=== PATIENT | female | born 1945 | race Caucasian/White ===

== ENCOUNTER → 2018-03-23 | Outpatient (CLI) | payer OTHER ==
[~2018-03-23] MED LIST: ADULT LOW DOSE81 MG PO; ANTACID500 MG OR; CALCIUM PO; COUMADIN; FISH OIL 1,0001 EAC5 PO; NEOMYCIN/BACIT3.5 G1 TOP; RYTHMOL 150MG150 M1 PO; VITAMIN D1000 UNI1 PO; VITAMIN E400 UNIT PO
== END ==
LOC: ULTRA 08:52
DX: R10.9 Unspecified abdominal pain (principal); Z87.448 Personal history of other diseases of urinary system

== ENCOUNTER → 2020-04-03 | Outpatient (CLI) | payer OTHER | LOC: LAB 10:03 | PROVIDERS: ATTEND Family Medicine | DX: Z20.828 Contact with and (suspected) exposure to other viral communicable diseases (principal) ==